=== PATIENT | female | born 1945 | race Caucasian/White ===

== ENCOUNTER 2022-05-03 09:28 | Outpatient (CLI) | payer OTHER ==
[~2022-05-03] VITALS: Ht 185.4 cm; Wt 102.1 kg
[2022-05-03 10:46] LABS: CLARITY,URINE SLIGHTLY CLOUDY (Clear); COLOR,URINE YELLOW (Yellow); GLUCOSE, URINE >=1000 mg/dl (Neg); KETONES,URINE NEGATIVE (Neg); LEUKOCYTE ESTERASE ,URINE NEGATIVE (Neg); NITRITES, URINE NEGATIVE (Neg); OCCULT BLOOD,URINE MODERATE (Neg); PH,URINE 5.5 (4.8-8.0); PROTEIN,URINE NEGATIVE (Neg); UROBILINOGEN,URINE 0.2 E.U/dL (0.2-1.0)
[2022-05-03] MEDS ORDERED: albuterol 2.5 MG/3 ML nebule NEB ONE (10:50)
[2022-05-03 10:51] LABS: UA COLLECTION TYPE CLN CATCH MIDSTREAM
[2022-05-03 10:59] LABS: ALANINE AMINOTRANSFERASE 43 U/L (12-78); ALBUMIN 3.5 G/DL (3.4-5.0); ALBUMIN/GLOBULIN RATIO 1.1 (1.1-1.5); ALKALINE PHOSPHATASE 58 IU/L (46-116); ANION GAP 6 (8-16); ASPARTATE AMINO TRANSFERASE 28 U/L (10-37); BILIRUBIN,TOTAL 0.4 MG/DL (0.1-1.0); BLOOD UREA NITROGEN 24 MG/DL (7-18); CHLORIDE 104 MMOL/L (99-107); GLUCOSE 112 MG/DL (70-104); POTASSIUM 4.2 MMOL/L (3.5-5.1); SODIUM 140 MMOL/L (135-145); TOTAL CARBON DIOXIDE 29.8 MMOL/L (24-32); TOTAL PROTEIN 6.7 G/DL (6.4-8.2)
[2022-05-03 11:09] LABS: BACTERIA,URINE FEW /HPF (Neg); RBC,URINE 50-100 /HPF (0-2); SQUAMOUS EPITHELIAL CELL,UR FEW /LPF (FEW); WBC,URINE 0-4 /HPF (0-4)
[2022-05-03 11:10] LABS: RENAL CELLS, URINE FEW /HPF
[2022-05-03 11:14] LABS: BUN/CREATININE RATIO 19.8 (6.6-38.0); CREATININE 1.21 MG/DL (0.40-0.90); eGFR 43 ML/MIN
== END 2022-05-03 23:59 | disposition home or self-care (01) ==
LOC: RAD 09:28
PROVIDERS: ATTEND Chiropractor
DX: J44.9 Chronic obstructive pulmonary disease, unspecified (principal); I25.10 Atherosclerotic heart disease of native coronary artery without angina pectoris; E11.9 Type 2 diabetes mellitus without complications; I08.8 Other rheumatic multiple valve diseases; J98.4 Other disorders of lung; M47.814 Spondylosis without myelopathy or radiculopathy, thoracic region
CPT/HCPCS: 36415; 71046; 80053; 81001; 93306; 94060; 94760

== ENCOUNTER 2024-07-04 10:24 | Outpatient (CLI) | payer OTHER ==
[~2024-07-04] VITALS: Ht 185.4 cm; Wt 104.3 kg
[2024-07-04] MEDS: albuterol 2.5 MG/3 ML nebule NEB ONE (11:01)
[2024-07-04 11:03] VITALS: PULSE 80; RESP 16; O2SAT 94
[2024-07-04 11:14] VITALS: PULSE 79; RESP 16
== END 2024-07-04 23:59 | disposition home or self-care (01) ==
LOC: RT 10:24
PROVIDERS: ATTEND Chiropractor
DX: J44.9 Chronic obstructive pulmonary disease, unspecified (principal)
CPT/HCPCS: 94060; 94760

== ENCOUNTER 2025-03-24 11:19 | Day surgery (SDC) | payer OTHER ==
[2025-03-20 10:38] LABS: MEAN PLATELET VOLUME 8.4 FL (7.4-10.4)
[2025-03-20 10:40] LABS: RED CELL DISTRIBUTION WIDTH 14.5 % (11.5-14.5)
[2025-03-20 10:49] LABS: APTT 25 SECONDS (22-32); INR 1.0 INR
[2025-03-20 11:04] LABS: CHOL/HDL RATIO 2.6 (0.00-4.99); CREATININE 1.14 MG/DL (0.60-1.10); LDL CHOLESTEROL 83 MG/DL (50-100); TOTAL CARBON DIOXIDE 27.9 MMOL/L (24-32); eGFR 62 ML/MIN
[~2025-03-24] VITALS: Ht 185.4 cm; Wt 105.4 kg
[2025-03-24] VITALS (9 sets, daily range): BP systolic 95–120; BP diastolic 47–62; PULSE 61–78; RESP 14–20; TEMP 98.3; O2SAT 94–96
[~2025-03-24 11:19] MED LIST: ASPI-611 PO; ATOR-429 PO; CHOL100046 PO; FINA5TAB11 PO; METO50TA7 PO; MULT-1085 PO; NAPR1TAB28 PO; NAPR220C15 PO; SACU1TAB4 PO; SPIR25TA5 PO; TAMS-55 PO
--- NOTE | 2025-03-24 11:43 | ELECTROCARDIOGRAPH REPORT ---
[facility] Test Date: 2025-03-24 Test Time: 12:38:30 Pat Name: HUGO SELBY Department: [facility] Patient ID: [id number] Room: Gender: M [employer] Driver: ANTONIA : 1945 Requested By: NAZARIO BAHENA Order Number: [id number] Reading MD: Dr. PETERSON Taylor Measurements Intervals [place] Rate: 81 P: 80 NE: 118 QRS: -19 QRSD: 113 T: 156 QT: 383 QTc: 445 Interpretive Statements Sinus rhythm Borderline short NE interval Incomplete left bundle branch block Repol abnrm, severe global ischemia (LM/MVD) Electronically Signed On 03-24-2025 13:22:[address] PETERSON Taylor Please click the below link to view image of tracing.
[2025-03-24] MEDS ORDERED: fentaNYL/PF 50MCG/1 ML 2ML syringe ONE (13:15)
[2025-03-24] MEDS ORDERED: heparin 1,000unit/ml 10ml vial 10 ML ONE (13:15)
[2025-03-24] MEDS ORDERED: LIDOcaine 1% (10mg/ml) 2ml vial ONE (13:15)
[2025-03-24] MEDS ORDERED: midazolam 1 mg/ML 2ml injection ONE (13:15)
[2025-03-24] MEDS ORDERED: verapamil 2.5 mg/ml inj IV ONE (13:15)
[2025-03-24] MEDS ORDERED: nitroGLYCERIN 500mcg/5mL D5W 5 ML IV ONE (13:38)
[2025-03-24] MEDS ORDERED: iohexol 350 MG/ML 50ML vial IV ONE (13:58)
[2025-03-24] MEDS ORDERED: ondansetron/PF 4mg/2ml inj IV PRN (14:55)
[2025-03-24] MEDS ORDERED: HYDROcodone/acetaminophen 5mg/325mg tablet PO PRN (15:00)
[2025-03-24] MEDS ORDERED: OXAZEpam 15mg capsule PO PRN (15:00)
[2025-03-24] MEDS ORDERED: HYDROcodone/acetaminophen 10/325mg tab PO PRN (15:00)
--- NOTE | 2025-04-12 07:59 | CARDIOLOGY REPORT ---
DATE OF SERVICE: 03/24/2025 DICTATING PHYSICIAN: Caitlyn Brian MD CARDIAC CATHETERIZATION REPORT DATE OF STUDY: 03/24/2025 PROCEDURES: * Left heart catheterization. * Selective coronary angiography. * Left ventriculography. * Conscious sedation monitoring time for 15 minutes INDICATION: * Shortness of breath. * Abnormal stress test. PHYSICIAN: Whitley Brian MD PROCEDURE: After informed consent was obtained, the patient was brought to the cardiac laborer adjustable steel joist in a fasting state where the patient was prepped and draped in the usual sterile manner. After adequate anesthesia was obtained using 1% lidocaine to the right wrist, a 5-Nepali sheath was inserted into the right radial artery using a modified Seldinger technique. Thereafter, using a cocktail of heparin, verapamil and nitroglycerin, the cocktail was given via the sheath in the radial artery to prevent coronary vasospasm and for anticoagulation. Next, using an Ultimate-2 catheter, the catheter was advanced under fluoroscopy guidance into the ascending aorta. The catheter was then manipulated to engage the left coronary system and coronary angiography of the left system was obtained. Next, the catheter was disengaged and manipulated to engage the right coronary artery and selective coronary angiography of the right coronary artery was obtained. Thereafter, the catheter was disengaged from the right coronary artery and manipulated to advance into the left ventricle where left ventriculography in the MILLER position was obtained. The catheter was then removed. Hemostasis was obtained using the radial band. HEMODYNAMICS: For the patient's hemodynamics, please refer to the event log. Left ventricular end diastolic pressure was 7 mmHg. FINDINGS: The left main coronary artery is a short caliber vessel free of significant disease. The left anterior descending coronary artery is a medium caliber vessel that appears to have a previously deployed stent in the proximal LAD. 20% to 30% in-stent restenosis is noted. The circumflex coronary artery is a normal caliber vessel with mild luminal irregularities. The right coronary artery is a medium caliber vessel with mild 20% proximal and diffuse mild distal disease. The left ventricle was crossed. Left ventricular end diastolic pressure was 7 mmHg. IMPRESSION: * There appears to be a stent in the proximal LAD with 20% to 30% in-stent restenosis. * Mild luminal irregularities of the circumflex and RCA. * Left ventricular end diastolic pressure is 7 mmHg. Caitlyn Brian MD TID: [id number] RECEIPT: [id number] ROSA/ISSA
== END 2025-03-24 17:00 | disposition home or self-care (01) ==
LOC: SSTAY O 11:19
PROVIDERS: ATTEND Student in an Organized Health Care Education/Training Program
DX: T82.855A Stenosis of coronary artery stent, initial encounter (principal); I11.0 Hypertensive heart disease with heart failure; I50.22 Chronic systolic (congestive) heart failure; I44.7 Left bundle-branch block, unspecified; E11.42 Type 2 diabetes mellitus with diabetic polyneuropathy; E78.5 Hyperlipidemia, unspecified; G47.33 Obstructive sleep apnea (adult) (pediatric); J44.9 Chronic obstructive pulmonary disease, unspecified; X58.XXXA Exposure to other specified factors, initial encounter; Z85.51 Personal history of malignant neoplasm of bladder; Z88.8 Allergy status to other drugs, medicaments and biological substances; Z79.82 Long term (current) use of aspirin
CPT/HCPCS: 36415; 80048; 80061; 82948; 85025; 85610; 85730; 93005; 93458; 99152; J1644; J2003; J2250; J3010; J3490; J7030; Q0163; Q9967; A6258; A6402; C1894